=== PATIENT | male | born 1985 | race Caucasian/White ===

== ENCOUNTER 2016-10-16 02:24 | Emergency (ER) | payer MEDICAID ==
[~2016-10-16] VITALS: Ht 162.6 cm; Wt 71.5 kg
[~2016-10-16 02:24] MED LIST: AMO500 PO; NAPR-688 PO
[2016-10-16 02:34] VITALS: Ht 162.6 cm; Wt 71.5 kg
[2016-10-16] MEDS ORDERED: LORAZEPAM 2 MG INJ IM ONE (03:00)
--- NOTE | 2016-10-16 03:13 | ERD ---
ER Documentation Chief Complaint Date/Time DATE: 10/16/16 TIME: 03:11 Chief Complaint smoked crystal HPI This is a 31-year-old male who comes in with complaints of smoking crystal meth and his "eyeballs hurting" after smoking crystal meth. Patient says this is a chronic issue whenever he smokes crystal meth that his testicles hurt. No other current complaints ROS All systems reviewed and are negative except as per history of present illness. Medications Home Meds Active Scripts Naproxen* (Naproxen*) 500 Mg Tablet, 500 MG PO BID Y for PAIN, #20 TAB Prov:ANN HERNANDEZ DO 03/02/15 Amoxicillin* (Amoxicillin*) 500 Mg Cap, 500 MG PO Q8 for 10 Days, CAP Prov:ANN HERNANDEZ DO 03/02/15 Allergies Allergies: Coded Allergies: No Known Allergy (Unverified , 07/30/14) PMhx/Soc History of Surgery: No Anesthesia Reaction: No Hx Neurological Disorder: No Hx Respiratory Disorders: No Hx Cardiac Disorders: No Hx Psychiatric Problems: Yes (meth use) Hx Miscellaneous Medical Probl: No Hx Alcohol Use: No Hx Substance Use: Yes (crystal meth last used 10/15/2016 around 2300) Hx Tobacco Use: No Smoking Status: Never smoker Physical Exam Vitals Vital Signs Date Time Temp Pulse Resp B/P Pulse Ox O2 Delivery O2 Flow Rate FiO2 10/16/16 02:34 97.8 88 18 138/97 100 Physical Exam Const: [] Head: Atraumatic Eyes: Normal Conjunctiva ENT: Normal External Ears, Nose and Mouth. Neck: Full range of motion..~ No meningismus. Resp: Clear to auscultation bilaterally Cardio: Regular rate and rhythm, no murmurs Abd: Soft, non tender, non distended. 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 I have asked him to stop smoking methamphetamines if it makes his testicles hurt as this seems to make the most sense. Departure Diagnosis: Primary Impression: Drug use Condition: Stable RENZO MCMAHAN Oct 16, 2016 03:12
[2016-10-16 05:17] VITALS: BP 134/77; PULSE 81; RESP 20; TEMP 98
== END 2016-10-16 05:17 | disposition home or self-care (01) ==
LOC: E/R 02:24
DX: F15.10 Other stimulant abuse, uncomplicated (principal); R40.2142 Coma scale, eyes open, spontaneous, at arrival to emergency department; R40.2252 Coma scale, best verbal response, oriented, at arrival to emergency department; R40.2362 Coma scale, best motor response, obeys commands, at arrival to emergency department
CPT/HCPCS: 96372; J2060

== ENCOUNTER 2017-01-14 16:34 | Emergency (ER) | payer SELFPAY ==
[~2017-01-14] VITALS: Ht 157.5 cm; Wt 60.0 kg
[2017-01-14 16:39] VITALS: Ht 157.5 cm; Wt 60.0 kg
[2017-01-14] MEDS ORDERED: BEN25 PO (18:11)
[2017-01-14 18:40] VITALS: BP 122/79; PULSE 67; RESP 20; TEMP 98
--- NOTE | 2017-01-14 19:57 | ERD ---
ER Documentation Chief Complaint Date/Time DATE: 01/14/17 TIME: 19:55 Chief Complaint RIGHT POSSIBLE FUNGAL INFECTION HPI 31-year-old male patient with a past medical history of onychomycosis presents to the ED for a nail bed infection that is similar to 3 years ago. Reports that this is been going on for 1 month. States that it is slightly itchy. Denies any chest pain, shortness of breath, loss of sensation, loss of range of motion, weakness, numbness or tingling, increased redness, fever, chills, swelling. States that when he took Terbinafine, it helped his symptoms 3 years ago. ROS All systems reviewed and are negative except as per history of present illness. Medications Home Meds Active Scripts Diphenhydramine Hcl* (Benadryl*) 25 Mg Cap, 25 MG PO Q6 Y for ITCHING/RASH, #30 TAB Prov:SIN MOCK PA-C 01/14/17 Naproxen* (Naproxen*) 500 Mg Tablet, 500 MG PO BID Y for PAIN, #20 TAB Prov:ANN HERNANDEZ DO 03/02/15 Amoxicillin* (Amoxicillin*) 500 Mg Cap, 500 MG PO Q8 for 10 Days, CAP Prov:ANN HERNANDEZ DO 03/02/15 Allergies Allergies: Coded Allergies: No Known Allergy (Unverified , 07/30/14) PMhx/Soc Medical and Surgical Hx: pt denies Medical Hx, pt denies Surgical Hx History of Surgery: No Anesthesia Reaction: No Hx Neurological Disorder: No Hx Respiratory Disorders: No Hx Cardiac Disorders: No Hx Psychiatric Problems: Yes (meth use) Hx Miscellaneous Medical Probl: No Hx Alcohol Use: No Hx Substance Use: Yes (crystal meth last used 10/15/2016 around 2300) Hx Tobacco Use: No Smoking Status: Never smoker Physical Exam Vitals Vital Signs Date Time Temp Pulse Resp B/P Pulse Ox O2 Delivery O2 Flow Rate FiO2 01/14/17 18:40 98.0 67 20 122/79 99 Room Air 01/14/17 16:39 98.5 61 18 129/82 99 Physical Exam Const: [id number], well-nourished. In no acute distress. Head: Atraumatic, normocephalic Eyes: Normal Conjunctiva without injection ENT: Normal external ear, nose and mouth. Neck: Full range of motion. No meningismus. Resp: Clear to auscultation bilaterally. No wheezing, rhonchi, rales, or crackles. No accessory muscle use. No retractions. Cardio: Regular rate and rhythm, no murmurs Skin: No petechiae or rashes Back: No midline tenderness. No CVA tenderness. Ext: No cyanosis, or edema. Cap refill less than 2 seconds. Distal pulses intact bilaterally. Onychomycosis noted of the right and left thumb nail bed. No surrounding erythema, edema. No warmth to touch. Full range of motion of DIP, PIP, MCP joints. Neur: Awake and alert. Normal gait and coordination. Muscle strength 5/5. Sensation intact bilaterally. Psych: Normal Mood and Affect Procedures/MDM This is a 31-year-old male patient with no significant past medical history presents to the ED complaining of his audio mycosis. Patient is afebrile nontoxic appearing. Patient has normal vital signs. I instructed patient that he needs to follow-up with his primary care physician to obtain liver function tests and BUN/Cr prior to receiving the medication Terbinafine. No indication for a workup or treatment here in the ED. Patient's liver enzymes need to be monitored prior to receiving this medication. Low suspicion for paronychia, abscess, scabies, SJS/TEN, erythema multiforme, sepsis, cellulitis, necrotizing fascitis, gangrene, meningococcemia or other emergent conditions. Discharge medications: Benadryl for itchiness Follow up with primary care physician in 1-2 days. Instructed patient to return to the ED sooner for any worsening symptoms. Patient's questions were answered. Patient understood and agreed with discharge plan. Patient discharged stable. Departure Diagnosis: Primary Impression: Nail fungal infection Condition: Stable Patient Instructions: Onychomycosis Referrals: COMMUNITY CLINICS YOU HAVE RECEIVED A MEDICAL SCREENING EXAM AND THE RESULTS INDICATE THAT YOU DO NOT HAVE A CONDITION THAT REQUIRES URGENT TREATMENT IN THE EMERGENCY DEPARTMENT. FURTHER EVALUATION AND TREATMENT OF YOUR CONDITION CAN WAIT UNTIL YOU ARE SEEN IN YOUR DOCTORS OFFICE WITHIN THE NEXT 1-2 DAYS. IT IS YOUR RESPONSIBILITY TO MAKE AN APPOINTMENT FOR FOLOW-UP CARE. IF YOU HAVE A PRIMARY DOCTOR --you should call your primary doctor and schedule an appointment IF YOU DO NOT HAVE A PRIMARY DOCTOR YOU CAN CALL OUR PHYSICIAN REFERRAL HOTLINE AT IF YOU CAN NOT AFFORD TO SEE A PHYSICIAN YOU CAN CHOSE FROM THE FOLLOWING [facility] [id number] [facility] [address] [facility] [address] [facility] [address] [facility] [address] [facility] [facility] [address] [facility] [facility] YOU HAVE RECEIVED A MEDICAL SCREENING EXAM AND THE RESULTS INDICATE THAT YOU DO NOT HAVE A CONDITION THAT REQUIRES URGENT TREATMENT IN THE EMERGENCY DEPARTMENT. FURTHER EVALUATION AND TREATMENT OF YOUR CONDITION CAN WAIT UNTIL YOU ARE SEEN IN YOUR DOCTORS OFFICE WITHIN THE NEXT 1-2 DAYS. IT IS YOUR RESPONSIBILITY TO MAKE AN APPOINTMENT FOR FOLOW-UP CARE. IF YOU HAVE A PRIMARY DOCTOR --you should call your primary doctor and schedule and appointment IF YOU DO NOT HAVE A PRIMARY DOCTOR YOU CAN CALL OUR PHYSICIAN REFERRAL HOTLINE AT . IF YOU CAN NOT AFFORD TO SEE A PHYSICIAN YOU CAN CHOSE FROM THE FOLLOWING [facility]: [facility] [address] [place] [address] [facility] [address] [place], [place] [id number] [place] [address] [address] [place] [address] [facility]SPECIALTIES Additional Instructions: Usted debe obtener tyra enzimas hepticas controladas y monitoreadas si usted quiere cheyanne terbinafine. Por favor, siga con pat mdico de cabecera para mayor evaluacin y tratamiento. Regrese a estas instalaciones si no se mejora franci esperbamos o franci le dijimos. La medicina que se le recet puede causarle sueo.NO DEBE MANEJAR NI OPERAR MAQUINARIAS PELIGROSAS mientras esta tomando esta medicina! SIN MOCK PA-C Jan 14, 2017 19:57
== END 2017-01-14 18:44 | disposition home or self-care (01) ==
LOC: FTE 16:34
DX: B35.1 Tinea unguium (principal)
CPT/HCPCS: 99283